=== PATIENT | male | born 1970 | race Caucasian/White ===

== ENCOUNTER → 2017-04-20 16:00 | Emergency (ER) | payer SELFPAY ==
[~2017-04-20 16:00] MED LIST: Iodixanol* (CONTRAST) 320 MG/ML 100 ML SDV IV ONE; Iodixanol* (CONTRAST) 320 MG/ML 100 ML SDV IV SCH; Ketorolac INJ* 30 MG/ML 1 ML VIAL IV PUSH ONE; NS 0.9% 1000 ML* 1,000 ML IV ONE; Orphenadrine Citrate IV* 30 MG/ML 2 ML VIAL IV ONE
[2017-04-20 16:58] LABS: Hematocrit 45 % (42-52); Hemoglobin 15.6 g/dl (14.0-18.0); Mean Corpuscular HGB Conc 35 g/dl (31-36); Mean Corpuscular Hemoglobin 29 pg (27-31); Mean Corpuscular Volume 84 fL (80-94); Mean Platelet Volume 9 um3 (7.4-10.4); Red Blood Count 5.33 10^6/ul (4.0-5.4); Red Cell Distribution Width 14 % (10.5-15); White Blood Count 10.4 10^3/ul (3.5-10.8)
[2017-04-20 17:13] LABS: ALT 55 U/L (7-52); AST 36 U/L (13-39); Albumin 4.5 g/dL (3.2-5.2); Alkaline Phosphatase 66 U/L (34-104); Anion Gap 9 mmol/L (2-11); BUN/Creatinine Ratio 15.8 (8-20); Blood Urea Nitrogen 21 mg/dL (6-24); CO2 Carbon Dioxide 26 mmol/L (22-32); Calcium 9.6 mg/dL (8.6-10.3); Chloride 102 mmol/L (101-111); Creatine Kinase 278 U/L (10-223); EGFR African American 73.5 (>60); EGFR Non-African American 57.1 (>60); Globulin 3.6 g/dL (2-4); Glucose 90 mg/dL (70-100); Potassium 3.3 mmol/L (3.5-5.0); Sodium 137 mmol/L (133-145); Total Protein 8.1 g/dL (6.4-8.9)
[2017-04-20 17:29] LABS: Alcohol < 10 mg/dL (<10)
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
[2017-04-20 18:39] LABS: Urine Bilirubin Negative (Negative); Urine Glucose Negative (Negative); Urine Nitrite Negative (Negative)
[2017-04-20 18:55] VITALS: BP 133/85
[2017-04-20 19:05] LABS: Benzodiazepine Urine Screen None Detected (None Detect)
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
== END | disposition home or self-care (01) ==
LOC: ED 16:00
DX: R10.9 Unspecified abdominal pain (principal); M54.9 Dorsalgia, unspecified; V89.2XXA Person injured in unspecified motor-vehicle accident, traffic, initial encounter; Y93.9 Activity, unspecified; Y92.9 Unspecified place or not applicable
CPT/HCPCS: 36415; 71260; 72128; 72131; 74177; 80053; 80307; 80320; 81003; 82550; 84484; 85025; 99283; G0480; Q9967